=== PATIENT | male | born 1970 | race Caucasian/White ===

== ENCOUNTER 2020-06-29 14:29 | Emergency (ER) | payer MEDICARE, MEDICAID ==
--- NOTE | 2020-06-29 21:03 | CT ---
CT OF THE BRAIN WITHOUT CONTRAST: 06/29/[address] of the brain was done after a fall. Comparison is made with the prior study dated 01/30/14. No intracranial bleeding or extra-axial hematoma was seen. The ventricles are normal in size with no shift. There is no finding of acute stroke, mass or edema. The skull appears intact. There is some mu cosal thickening in the floor of each maxillary sinus. The mastoid air cells are clear. IMPRESSION: No acute intracranial findings. POS: HOME
== END 2020-06-29 16:30 ==
LOC: BURERS 14:29
DX: S01.81XA Laceration without foreign body of other part of head, initial encounter (principal); E03.9 Hypothyroidism, unspecified; G40.909 Epilepsy, unspecified, not intractable, without status epilepticus; Z79.899 Other long term (current) drug therapy; W01.198A Fall on same level from slipping, tripping and stumbling with subsequent striking against other object, initial encounter
CPT/HCPCS: 12013; 70450

== ENCOUNTER 2020-09-28 14:10 | Emergency (ER) | payer MEDICARE, MEDICAID ==
[2020-09-28 15:09] LABS: #Eosinphils 0.1 thou/uL (0.0-0.7); #Monocytes 0.3 thou/uL (0.11-0.59); #Neutrophils 3.2 thou/uL (1.40-6.50); %Basophils 1.1 % (0.0-1.0); %Eosinophils 1.7 % (0.0-10.0); %Lymphocytes 20.8 % (21.0-51.0); %Neutrophils 69.4 % (42.0-75.0); Hemoglobin 13.5 g/dL (14.0-18.0); Mean Corpuscular HGB CONC 31.5 g/dL (32.0-36.0); Mean Corpuscular Hemoglobin 31.3 pg (27.0-31.0); Mean Corpuscular Volume 99.2 fL (78.0-98.0); Mean Platelet Volume 8.3 fL (7.4-10.4); Platelet Count 163 thou/uL (130-400); RBC Distribution Width 13.5 % (11.5-14.5); Red Blood Cell (RBC) Count 4.31 mill/uL (4.70-6.10); White Blood Cell (WBC) Count 4.6 thou/uL (4.8-10.8)
[2020-09-28 15:14] LABS: Prothrombin Time 13.3 sec (12.0-14.7)
[2020-09-28 15:26] LABS: ALT (SGPT) 14 U/L (8-55); AST (SGOT) 15 U/L (5-34); Albumin 3.7 g/dL (3.5-5.0); Alkaline Phosphatase 104 U/L (40-110); Anion Gap 14 mmol/L (10-20); BUN (Urea Nitrogen) 12 mg/dL (8.9-20.6); Bilirubin, Total Less than 0.2 mg/dL (0.2-1.2); Calc. Creatinine Clearance 0 mL/min (70-130); Calcium 8.5 mg/dL (7.8-10.44); Carbon Dioxide 30 mmol/L (22-29); Chloride 106 mmol/L (98-107); Globulin 3.2 g/dL (2.4-3.5); Glucose 89 mg/dL (70-105); Potassium 3.8 mmol/L (3.5-5.1); Protein, Total 6.9 g/dL (6.0-8.3); Sodium 146 mmol/L (136-145)
--- NOTE | 2020-09-28 15:40 | CT ---
CT OF THE CERVICAL SPINE 09/28/[address] of the cervical spine was performed following trauma. Comparison is made with a 01/30/14 stud y. No fracture, dislocation, or soft tissue swelling was seen. There is minor disc space narrowing at C2 -C3. The C1 to dens distance is normal. Findings by level follow: C1-C2: Unremarkable. C2-C3: Unremarkable. C3-C4: Large posterior osteophyte that effaces the thecal sac somewhat. It has grown since the 2013 tudy. The AP diameter of the spinal canal at this point is approximately 9 mm. There is no foraminal stenosis. C4-C5: No acute findings. C5-C6: No acute findings. C6-C7: No acute findings. C7-T1: No acute findings. The lung apices are clear and show no pneumothorax. IMPRESSION: Mild degenerative change but no acute traumatic findings. Preliminary report called to Kika in ER at 1528 on 08/28/21. POS: HOME
--- NOTE | 2020-09-28 15:42 | CT ---
CT OF THE BRAIN WITHOUT CONTRAST: DATE: 09/28/2020. COMPARISON: Comparison is made with the 06/29/2020 study. In the interval, there has been no adverse change. Th e ventricles are normal in size and show no shift. No intracranial bleeding or extraaxial hematoma w as seen. The skull appears intact with no sign of fracture. There is some mucosal thickening in the maxillary sinuses. The visible paranasal sinuses and mastoid air cells are otherwise clear. IMPRESSION: No acute intracranial findings. Preliminary report called to Kika in ER at 1528 on 09/28/2020. CODE CR POS: HOME
[2020-09-28 16:45] LABS: Bilirubin Small (Negative); Blood, Urine Negative (Negative); Clarity Clear (Clear); Glucose, Urine (Dipstick) Negative (Negative); Ketone, Urine Negative (Negative); Leukocyte Negative (Negative); Nitrite Negative (Negative); Protein, Urine (Dipstick) Trace mg/dL (Neg-Trace); Specific Gravity, Urine 1.025 (1.005-1.030)
[2020-09-28] MEDS ORDERED: Lidocaine 1% w/Epinephrine 1:100K 20 ML VIAL ONE (16:45)
== END 2020-09-28 17:15 ==
LOC: BURERS 14:10
DX: S01.01XA Laceration without foreign body of scalp, initial encounter (principal); E03.9 Hypothyroidism, unspecified; G40.909 Epilepsy, unspecified, not intractable, without status epilepticus; W19.XXXA Unspecified fall, initial encounter
CPT/HCPCS: 12002; 36415; 51701; 70450; 72125; 80053; 81003; 85025; 85610

== ENCOUNTER 2020-09-29 10:27 | Outpatient (CLI) | payer MEDICARE, MEDICAID ==
[2020-09-29 16:49] LABS: Carbamazepine-Tegretol 8.5 ug/mL (4.0-12.0)
== END 2020-09-29 10:28 | disposition home or self-care (01) ==
LOC: BURLAB 10:27
PROVIDERS: ATTEND Family Medicine
DX: G40.109 Localization-related (focal) (partial) symptomatic epilepsy and epileptic syndromes with simple partial seizures, not intractable, without status epilepticus (principal)
CPT/HCPCS: 36415; 80156; 80184

== ENCOUNTER 2021-09-10 20:49 | Emergency (ER) | payer MEDICARE, OTHER ==
[2021-09-10] MEDS ORDERED: Bacitracin 1 PK ONE (21:12)
[2021-09-10] MEDS ORDERED: Lidocaine 1% w/Epinephrine 1:100K 20 ML VIAL ONE (21:12)
[2021-09-10] MEDS ORDERED: Boostrix 0.5 ML (Tdap) VIAL ONE (21:12)
== END 2021-09-10 21:16 | disposition home or self-care (01) ==
LOC: BURERS 20:49
DX: S01.81XA Laceration without foreign body of other part of head, initial encounter (principal); Z23 Encounter for immunization; W19.XXXA Unspecified fall, initial encounter; E03.9 Hypothyroidism, unspecified
CPT/HCPCS: 12011; 70450; 70486; 72125; 90471; 90715

== ENCOUNTER 2022-04-03 21:14 | Emergency (ER) | payer OTHER ==
[2022-04-03] MEDS ORDERED: Acetaminophen 650 MG Suppository ONE (21:30)
[2022-04-03] MEDS ORDERED: Acetaminophen 325 MG Suppository ONE (21:32)
[2022-04-03] MEDS ORDERED: Cefepime 2 GM VIAL ONE (22:02)
[2022-04-03] MEDS ORDERED: Sodium Chloride 0.9% 100 ML ONE (22:02)
[2022-04-03 22:48] LABS: INR-International Normal Ratio 1.1; Prothrombin Time 14.8 sec (12.0-14.7)
[2022-04-03 22:50] LABS: Bilirubin Negative (Negative); Blood, Urine Moderate (Negative); Clarity Clear (Clear); Glucose, Urine (Dipstick) Negative (Negative); Ketone, Urine 40 mg/dL (Negative); Leukocyte Negative (Negative); Nitrite Negative (Negative); Protein, Urine (Dipstick) 100 mg/dL (Neg-Trace); Specific Gravity, Urine 1.025 (1.005-1.030); Urobilinogen 0.2 mg/dL (Less than 2); pH, Urine 5.5 (5.0-9.0)
[2022-04-03 22:57] LABS: ALT (SGPT) 98 U/L (8-55); AST (SGOT) 230 U/L (5-34); Albumin 3.3 g/dL (3.5-5.0); Alkaline Phosphatase 69 U/L (40-110); Anion Gap 16 mmol/L (10-20); BUN (Urea Nitrogen) 17 mg/dL (8.9-20.6); Bilirubin, Total 0.4 mg/dL (0.2-1.2); Calc. Creatinine Clearance 0 mL/min (70-130); Calcium 8.1 mg/dL (7.8-10.44); Carbon Dioxide 20 mmol/L (22-29); Chloride 108 mmol/L (98-107); Estimated GFR 99; Globulin 3.5 g/dL (2.4-3.5); Glucose 121 mg/dL (70-105); Potassium 3.7 mmol/L (3.5-5.1); Protein, Total 6.8 g/dL (6.0-8.3); Sodium 140 mmol/L (136-145)
[2022-04-03 23:02] LABS: PTT 22.3 sec (22.9-36.1)
[2022-04-03 23:10] LABS: Mucous/LPF 2+ LPF (<2+); Squamous Epithelial 0-3 HPF (0-3); WBC/HPF 0-3 HPF (0-3)
[2022-04-03 23:14] LABS: CKMB 5.8 ng/mL (0-6.6)
[2022-04-03] MEDS ORDERED: Aspirin Chewable 81 MG TAB ONE (23:33)
[2022-04-03] MEDS ORDERED: Dexamethasone 10 MG/ML VIAL ONE (23:33)
[2022-04-03 23:35] LABS: SARS-CoV-2 NAA Rapid Test DETECTED (NotDetected)
[2022-04-03 23:37] LABS: #Lymphocytes 0.2 thou/uL (1.20-3.40); #Monocytes 0.3 thou/uL (0.11-0.59); #Neutrophils 8.7 thou/uL (1.40-6.50); %Basophils 0.2 % (0.0-1.0); %Lymphocytes 2.6 % (21.0-51.0); %Monocytes 2.8 % (0.0-10.0); %Neutrophils 94.4 % (42.0-75.0); Hemoglobin 12.8 g/dL (14.0-18.0); Mean Corpuscular HGB CONC 33.9 g/dL (32.0-36.0); Mean Corpuscular Hemoglobin 32.7 pg (27.0-31.0); Mean Corpuscular Volume 96.4 fL (78.0-98.0); Mean Platelet Volume 7.2 fL (7.4-10.4); Platelet Count 113 thou/uL (130-400); RBC Distribution Width 12.1 % (11.5-14.5); Red Blood Cell (RBC) Count 3.93 mill/uL (4.70-6.10); White Blood Cell (WBC) Count 9.3 thou/uL (4.8-10.8)
[2022-04-04] MEDS ORDERED: Ibuprofen 800 MG TAB ONE (01:09)
== END 2022-04-04 01:32 | disposition short-term general hospital (02) ==
LOC: BURERS 21:14
DX: A41.89 Other specified sepsis (principal); U07.1 COVID-19; J12.82 Pneumonia due to coronavirus disease 2019; E03.9 Hypothyroidism, unspecified; G40.909 Epilepsy, unspecified, not intractable, without status epilepticus
CPT/HCPCS: 71045; 80053; 81003; 81015; 82553; 83605; 83880; 84484; 85025; 85610; 85730; 87040; 93005; 94760; 96374; 96375; J0692; J1100; J3370; J3490

== ENCOUNTER 2022-05-08 23:51 | Emergency (ER) | payer OTHER ==
[2022-05-08] MEDS ORDERED: Acetaminophen 500 MG TAB ONE (23:57)
== END 2022-05-09 01:26 ==
LOC: BURERS 23:51
DX: S01.111A Laceration without foreign body of right eyelid and periocular area, initial encounter (principal); S80.02XA Contusion of left knee, initial encounter; M79.671 Pain in right foot; E03.9 Hypothyroidism, unspecified; G40.909 Epilepsy, unspecified, not intractable, without status epilepticus; Z79.899 Other long term (current) drug therapy; W18.30XA Fall on same level, unspecified, initial encounter
CPT/HCPCS: 12011

== ENCOUNTER 2023-10-19 11:57 | Emergency (ER) | payer OTHER ==
[2023-10-19] MEDS ORDERED: Lorazepam 2 MG/ML VIAL ONE (12:04)
[2023-10-19] MEDS ORDERED: Lidocaine 1% w/Epinephrine 1:100K 50 ML VIAL ONE (12:34)
== END 2023-10-19 14:33 | disposition home or self-care (01) ==
LOC: BURERS 11:57
DX: S01.81XA Laceration without foreign body of other part of head, initial encounter (principal); R29.6 Repeated falls; W19.XXXA Unspecified fall, initial encounter
CPT/HCPCS: 12001; 99283; J2060

== ENCOUNTER 2024-02-16 08:46 | Emergency (ER) | payer OTHER, MEDICAID | END 2024-02-16 09:47 | disposition home or self-care (01) | LOC: BURERS 08:46 | DX: R41.82 Altered mental status, unspecified (principal); E03.9 Hypothyroidism, unspecified | CPT/HCPCS: 99284 ==

== ENCOUNTER 2024-03-25 01:24 | Emergency (ER) | payer OTHER, MEDICAID | END 2024-03-25 02:14 | LOC: BURERS 01:24 | DX: G40.909 Epilepsy, unspecified, not intractable, without status epilepticus (principal); E03.9 Hypothyroidism, unspecified; Z79.899 Other long term (current) drug therapy | CPT/HCPCS: 99284 ==

== ENCOUNTER 2025-04-10 10:23 | Emergency (ER) | payer OTHER | END 2025-04-10 11:51 | LOC: BURERS 10:23 | DX: S00.83XA Contusion of other part of head, initial encounter (principal); R29.6 Repeated falls; G40.909 Epilepsy, unspecified, not intractable, without status epilepticus; Z79.899 Other long term (current) drug therapy; W19.XXXA Unspecified fall, initial encounter | CPT/HCPCS: 70450; 72125 ==